=== PATIENT | male | born 1945 | race Caucasian/White ===

== ENCOUNTER 2017-10-03 21:00 | Inpatient (IN) | payer OTHER ==
[~2017-10-03] VITALS: Ht 167.6 cm; Wt 87.2 kg
[~2017-10-03 21:00] MED LIST: ADULT ASPIRIN81 MG PO; ALEVE220 MG PO; LIPITOR20 MG PO; PRINIVIL10 MG PO
[2017-10-04 07:35] VITALS: BP 163/95
[2017-10-04 13:56] LABS: HEMATOCRIT 43.5 % (38.0-50.0); HEMOGLOBIN 14.5 G/DL (12.5-16.6); MCV 93.5 FL (86-99)
[2017-10-04 15:00] VITALS: BP 141/88
[2017-10-04 20:10] VITALS: BP 144/85
[2017-10-04 21:47] VITALS: BP 144/92
[2017-10-05 00:08] VITALS: BP 133/90
[2017-10-05 04:18] VITALS: BP 141/70
[2017-10-05 08:17] VITALS: BP 137/81
[2017-10-05 12:18] VITALS: BP 152/83
[2017-10-05 13:33] LABS: HEMATOCRIT 39.3 % (38.0-50.0); HEMOGLOBIN 13.2 G/DL (12.5-16.6); MCV 93.8 FL (86-99)
[2017-10-05 16:05] VITALS: BP 133/76
[2017-10-05 20:29] VITALS: BP 121/75
[2017-10-06 00:07] VITALS: BP 144/79
[2017-10-06 04:30] VITALS: BP 137/80
[2017-10-06 08:00] VITALS: BP 140/78
[2017-10-06] MEDS ORDERED: DOCUSATE SODIU100 MG PO (09:16)
[2017-10-06] MEDS ORDERED: ELIQUIS2.5 MG PO (09:17)
[2017-10-06] MEDS ORDERED: ENDOCET 5-3251 EACH PO (09:17)
[2017-10-06 12:00] VITALS: BP 118/70
== END 2017-10-06 14:05 | disposition home health service (06) | DRG 470 ==
LOC: ENRESERV 21:00 → 2SOUTH 10-04 07:17 → 3WEST 10-04 14:38 → 2SOUTH 10-04 15:40 → 3WEST 10-06 14:05
PROVIDERS: Orthopaedic Surgery
PROC: 0SR90JA Replacement of Right Hip Joint with Synthetic Substitute, Uncemented, Open Approach (ICD-10-PCS; principal; 2017-10-04)
DX: M16.11 Unilateral primary osteoarthritis, right hip (principal); I10 Essential (primary) hypertension; E78.5 Hyperlipidemia, unspecified; E66.9 Obesity, unspecified; E78.00 Pure hypercholesterolemia, unspecified; Z79.82 Long term (current) use of aspirin; Z86.73 Personal history of transient ischemic attack (TIA), and cerebral infarction without residual deficits; Z68.31 Body mass index [BMI] 31.0-31.9, adult
CPT/HCPCS: 85014; 85018; J0690; J1170; J2765; J7050; J7120